=== PATIENT | female | born 1990 | race Caucasian/White ===

== ENCOUNTER → 2017-10-17 | Outpatient (CLI) | payer BC ==
[2017-10-17 13:39] LABS: Basophils % (A) 1 %; Eosinophils # (A) 0.1 k/uL (0-0.7); Eosinophils % (A) 2 %; HCT 42.8 % (34.0-46.0); HGB 13.9 gm/dL (11.4-16.0); Lymphocytes # (A) 1.7 k/uL (1.0-4.8); Lymphocytes % (A) 36 %; MCH 28.5 pg (25.0-35.0); MCHC 32.5 g/dL (31.0-37.0); MCV 87.7 fL (80.0-100.0); Mean Platelet Volume 6.9; Monocytes # (A) 0.2 k/uL (0-1.0); Monocytes % (A) 4 %; Neutrophils # (A) 2.6 k/uL (1.3-7.7); Neutrophils % (A) 54 %; Platelet Count 290 k/uL (150-450); RBC 4.88 m/uL (3.80-5.40); RDW 15.2 % (11.5-15.5); WBC 4.8 k/uL (3.8-10.6)
[2017-10-17 14:00] LABS: ALT 38 U/L (9-52); AST 23 U/L (14-36); Albumin 4.8 g/dL (3.5-5.0); Alkaline Phosphatase 74 U/L (38-126); Anion Gap 14 mmol/L; Blood Urea Nitrogen 14 mg/dL (7-17); Calcium 9.9 mg/dL (8.4-10.2); Carbon Dioxide 24 mmol/L (22-30); Chloride 101 mmol/L (98-107); Cholesterol 149 mg/dL (<200); Glucose 78 mg/dL (74-99); HDL Cholesterol 66 mg/dL (40-60); LDL Cholesterol,Calculated 65 mg/dL (0-99); Potassium 4.6 mmol/L (3.5-5.1); Sodium 139 mmol/L (137-145); Total Bilirubin 0.3 mg/dL (0.2-1.3); Total Protein 7.3 g/dL (6.3-8.2); Triglycerides 91 mg/dL (<150)
[2017-10-17 14:13] LABS: T4, Free (Free Thyroxine) 1.06 ng/dL (0.78-2.19)
[2017-10-17 14:42] LABS: C Reactive Protein <5.0 mg/L (<10.0)
[2017-10-17 17:36] LABS: Erythrocyte Sedimentation Rate 2 mm/hr (0-20)
[2017-10-17 18:39] LABS: Rheumatoid Factor 7 IU/mL (0-15)
[2017-10-17 18:47] LABS: Vitamin D 25 Hydroxy 21.2 ng/mL (30.0-100.0)
== END | disposition home or self-care (01) ==
LOC: LABWHC1 12:30
PROVIDERS: ATTEND Family Medicine
DX: Z00.00 Encounter for general adult medical examination without abnormal findings (principal); F98.8 Other specified behavioral and emotional disorders with onset usually occurring in childhood and adolescence; R53.83 Other fatigue; Z79.899 Other long term (current) drug therapy
CPT/HCPCS: 36415; 80053; 80061; 82306; 84439; 84443; 85025; 85652; 86038; 86140; 86431

== ENCOUNTER → 2019-12-27 | Outpatient (CLI) | payer OTHER ==
--- NOTE | 2019-12-27 16:46 | US ---
EXAMINATION TYPE: US abdomen complete DATE OF EXAM: 12/27/2019 COMPARISON: NONE CLINICAL HISTORY: R11.0 Nausea. episodes of spontaneous vomiting, on and off for years EXAM MEASUREMENTS: Liver Length: 13.9 cm Gallbladder Wall: 0.2 cm CBD: 0.4 cm Spleen: 11.2 cm Right Kidney: 9.5 x 4.0 x 4.8 cm Left Kidney: 10.0 x 3.7 x 4.9 cm Pancreas: wnl Liver: wnl Gallbladder: 1.2cm stone versus mobile sludge ball with comet tail artifact seen on anterior wall wh ich may be related too adenomyomatosis Evidence for sonographic Castillo's sign: no CBD: wnl Spleen: wnl Right Kidney: wnl Left Kidney: wnl Upper IVC: wnl Abd Aorta: wnl IMPRESSION: 1. Cholelithiasis. 2. There may be an additional long gallbladder polyp or adenomyosis the gallbladder.
--- NOTE | 2019-12-27 16:47 | US ---
EXAMINATION TYPE: US thyroid st tissue head/neck DATE OF EXAM: 12/27/2019 COMPARISON: NONE CLINICAL HISTORY: Thyromegaly E01.0. patient feels her thyroid is enlarged, no previous us, not on me ds GLAND SIZE: Right Lobe: 3.9 x 1.8 x 1.1cm Overall Parenchyma: homogenous Left Lobe: 4.2 x 1.3 x 1.2cm Overall Parenchyma: homogeneous Isthmus Thickness: 0.3 cm NODULES RIGHT: # of nodules measured on right: 0 LEFT: # of nodules measured on left: 0 ISTHMUS: # of nodules measured in the isthmus: 0 Bilateral neck scanned, no evidence of lymphadenopathy. IMPRESSION: 1. Normal thyroid ultrasound
== END | disposition home or self-care (01) ==
LOC: RADUSWWP 10:44
PROVIDERS: ATTEND Pediatrics
DX: E01.0 Iodine-deficiency related diffuse (endemic) goiter (principal); R11.0 Nausea; K80.20 Calculus of gallbladder without cholecystitis without obstruction
CPT/HCPCS: 76536; 76700

== ENCOUNTER → 2020-01-06 | Outpatient (CLI) | payer OTHER ==
--- NOTE | 2020-01-06 11:20 | NM ---
Nuclear medicine hepatobiliary scan. HISTORY: Pain. DOSAGE: The patient received 8 ounces of ensure plus and 4.0 mCi of Technetium 99m Choletec. FINDINGS: There is normal hepatic extraction. The gallbladder is seen by 20 minutes. There is bilia ry to bowel clearance is not seen at 60 minutes and delayed. This is a nonspecific finding be seen as a normal finding in one quarter lobulation. Ejection fraction is 50%. IMPRESSION: 1. No evidence of cholecystitis. Ejection fraction is within normal limits at 50%.
== END | disposition home or self-care (01) ==
LOC: RADNMMAIN 08:43
PROVIDERS: ATTEND Pediatrics
DX: R11.0 Nausea (principal)
CPT/HCPCS: 78226; A9537

== ENCOUNTER 2021-10-10 17:48 | Outpatient (CLI) | payer OTHER ==
[2021-10-10 20:09] VITALS: BP 123/73; PULSE 116; RESP 18; TEMP 98
--- NOTE | 2021-10-11 06:50 | P.MSEPDOC ---
Presenting Problems - Arrival Data Date of Arrival on Unit: 10/10/21 Time of Arrival on Unit: 17:48 Mode of Transport: Wheelchair - Complaint OB-Reason for Admission/Chief Complaint: Possible Onset of Labor Comment: pt states contractions have been going on the last 4 days but stronger this morning, pt states about every 5 minutes. Medical History - Information : 1 Para: 0 Term: 0 : 0 Abortions: Spontaneous or Elective: 0 Number of Living Children: 0 - Gestational Age Gestational Age by DONN (wks/days): 40 Weeks and 6 Days Review of Systems - Review of Systems Constitutional: No problems Breast: No problems ENT: No problems Cardiovascular: No problems Respiratory: No problems Gastrointestinal: No problems Genitourinary: No problems Musculoskeletal: No problems Neurological: No problems Skin: No problems Vital Signs - Temperature Temperature: 98.0 F Temperature Source: Oral - Pulse Right Pulse Oximetery Pulse Rate: 116 Pulse Assessment Method: Pulse Oximetry - Respirations Respiratory Rate: 18 Oxygen Delivery Method: Room Air O2 Sat by Pulse Oximetry: 98 - Blood Pressure Right Arm Blood Pressure: 123/73 Blood Pressure Mean: 89 Blood Pressure Source: Automatic Cuff Medical Screen Scoring - Cervical Exam Dilation (cm): 1 Effacement (%): 0 Station: -2 Membranes: Intact - Uterine Contractions Frequency From (mins): 2 Frequency To (mins): 4 Duration From (seconds): 40 Duration To (seconds): 60 Intensity: Mild Resting: Soft to palpation - Assessment - Baby A Baseline FHR: 125 Heart Rate - NICHD Category: Category I (Normal) NST: Reactive Physician Notification - Physician Notified Physician Notified Date: 10/10/21 Physician Notified Time: 18:00 Physician: Toan Godinez New Order Received: Yes - Notification Comment Comment: in unit, to bedside to see patient order to discharge patient after reactive NST Maternal Triage Index - Maternal Triage Index Presenting for scheduled procedure w/no complaint: No - Stat/Priority 1 Stat Priority 1: No - Urgent/Priority 2 Urgent Priority 2: No - Prompt/Priority 3 Prompt Priority 3: No - Non-Urgent/Priority 4 Non-Urgent Priority 4: Yes Criteria Met for Priority 4: early labor signs. Disposition - Disposition OB Disposition: Discharge to home Discharge Date: 10/10/21 Discharge Time: 18:30 I agree with the RN Medical Screening Exam: Yes Case reviewed; plan agreed upon as documented in EMR&OBIX.: Yes Diagnosis: FALSE LABOR AT OR AFTER 37 COMPLETED WEEKS OF GESTATION (Patient pre sents with complaints of contractions and a gush of fluid earlier this morning. Amnio sure is negative. Patient is only 1 cm dilated not having regular contractions. heart tones are reactive. Patient's discharge home follow up in the morning for induction as scheduled)
== END 2021-10-10 18:30 | disposition home or self-care (01) ==
LOC: FBPOP 17:48
PROVIDERS: ATTEND Obstetrics & Gynecology
DX: O47.1 False labor at or after 37 completed weeks of gestation (principal); Z3A.40 40 weeks gestation of pregnancy
CPT/HCPCS: 59025; 84112; 99213

== ENCOUNTER 2021-10-11 03:45 | Inpatient (IN) | payer OTHER ==
[2021-10-11] MEDS ORDERED: TERBUTALINE 1 MG/ML VIAL SQ PRN (03:52)
[2021-10-11] MEDS ORDERED: LIDOCAINE 0.5% (PF) 5 MG/ML (50 ML SDV) SQ PRN (03:52)
[2021-10-11] MEDS ORDERED: CARBOPROST TROMETHAMINE 250 MCG/ML 1 ML AMP IM PRN (03:52)
[2021-10-11] MEDS ORDERED: METHYLERGONOVINE 0.2 MG/ML 1 ML AMP IM PRN (03:52)
[2021-10-11] MEDS ORDERED: OXYTOCIN 10 UNIT/ML 1 ML VIAL IM PRN (03:52)
[2021-10-11] MEDS ORDERED: OXYTOCIN 30 UNITS/500 ML NS 30 UNIT in SALINE 1 500ML.BAG IV SCH (04:00)
[2021-10-11 04:35] LABS: Basophils % (A) 0 %; Eosinophils # (A) 0.1 k/uL (0-0.7); Eosinophils % (A) 1 %; HCT 41.6 % (34.0-46.0); HGB 13.8 gm/dL (11.4-16.0); Lymphocytes # (A) 1.8 k/uL (1.0-4.8); Lymphocytes % (A) 13 %; MCH 30.6 pg (25.0-35.0); MCHC 33.2 g/dL (31.0-37.0); MCV 92.1 fL (80.0-100.0); Mean Platelet Volume 8.9; Monocytes # (A) 0.5 k/uL (0-1.0); Monocytes % (A) 4 %; Neutrophils # (A) 11.2 k/uL (1.3-7.7); Neutrophils % (A) 81 %; Platelet Count 254 k/uL (150-450); RBC 4.52 m/uL (3.80-5.40); RDW 14.2 % (11.5-15.5); WBC 13.8 k/uL (3.8-10.6)
[2021-10-11] MEDS: LACTATED RINGERS 1,000 ML IV SCH ×2 (04:37→18:36)
[2021-10-11 05:55] LABS: Amphetamine Screen,Urine Not Detected (NotDetected); Barbiturate Screen,Urine Not Detected (NotDetected); Benzodiazepines Screen,Urine Not Detected (NotDetected); Cocaine Screen,Urine Not Detected (NotDetected); Methadone Screen, Urine Not Detected (NotDetected); Opiate Screen,Urine Not Detected (NotDetected); Oxycodone Screen, Urine Not Detected (NotDetected); Phencyclidine Screen,Urine Not Detected (NotDetected); Tricyclic Antidepressant,Urine Not Detected (NotDetected); Urn Cannabinoid Scrn Not Detected (NotDetected)
[2021-10-11] MEDS ORDERED: BUTORPHANOL 1 MG/ML 1 ML VIAL IV PRN (07:30)
--- NOTE | 2021-10-11 07:49 | P.HPOB ---
History of Present Illness H&P Date: 10/11/21 Chief Complaint: SROM 31 year old presents at 41 weeks with SROM at 2 am. She is xochitl every few minutes. heart tones 140 with moderate variability and reactive. Review of Systems All systems: negative Constitutional: Denies chills, Denies fever Eyes: denies blurred vision, denies pain Ears, nose, mouth and throat: Denies headache, Denies sore throat Cardiovascular: Denies chest pain, Denies shortness of breath Respiratory: Denies cough Gastrointestinal: Denies abdominal pain, Denies diarrhea, Denies nausea, Denies vomiting Genitourinary: Denies dysuria, Denies hematuria Musculoskeletal: Denies myalgias Integumentary: Denies pruritus, Denies rash Neurological: Denies numbness, Denies weakness Psychiatric: Denies anxiety, Denies depression Endocrine: Denies fatigue, Denies weight change Past Medical History Past Medical History: No Reported History Additional Past Medical History / Comment(s): Anxiety/Depression, Gastritis, pseudotumor cerebri History of Any Multi-Drug Resistant Organisms: None Reported Past Surgical History: Orthopedic Surgery, Tonsillectomy Additional Past Surgical History / Comment(s): Ortho Sx-Bunion removal to left foot Past Anesthesia/Blood Transfusion Reactions: No Reported Reaction Past Psychological History: No Psychological Hx Reported Smoking Status: Current every day smoker Past Alcohol Use History: None Reported Past Drug Use History: None Reported Additional Drug Use History / Comment(s): See urine drug screen on 06/05/21- positive marijuana. 4-5 cig per day - Past Family History Mother Family Medical History: Hypertension Additional Family Medical History / Comment(s): microscopic cholitis, depresion/anxiety Medications and Allergies Home Medications Medication Instructions Recorded Confirmed Type Ami-Wpwf-Ceemv Acid 1 cap PO DAILY 06/04/21 10/11/21 History [-U Capsule (formulary)] Allergies Allergy/AdvReac Type Severity Reaction Status Date / Time No Known Allergies Allergy Verified 10/11/21 03:52 Exam Osteopathic Statement: *. No significant issues noted on an osteopathic structural exam other than those noted in the History and Physical/Consult. Vital Signs Temp Pulse Resp BP Pulse Ox 10/11/21 03:50 95.4 F L 104 H 18 133/87 100 Intake and Output 0610/11/21 10/11/21 22:59 06:59 14:59 Other: # Voids 1 Weight 98.43 kg Heart: Regular rate and rhythm Lungs: Clear to auscultation bilaterally Abdomen: Soft, nontender Extremities: Negative Homans sign Results Result Diagrams: 10/11/21 04:05 Abnormal Lab Results - Last 24 Hours (Table) 10/11/21 Range/Units 04:05 WBC 13.8 H (3.8-10.6) k/uL Neutrophils # 11.2 H (1.3-7.7) k/uL Assessment and Plan (1) Spontaneous rupture of amniotic membranes Current Visit: Yes Status: Acute Code(s): [id number] - SNOMED Code(s): 805985248 (2) Normal labor Current Visit: Yes Status: Acute Code(s): O80 - ENCOUNTER FOR FULL-TERM UNCOMPLICATED DELIVERY; Z37.9 - OUTCOME OF DELIVERY, UNSPECIFIED SNOMED Code(s): 60126084 Plan: 1. pitocin augmentation 2. anticipate normal vaginal delivery
[2021-10-11] MEDS ORDERED: ROPIVACAINE 100 MG, fentaNYL (PF). 200 MCG in SODIUM CHLORIDE 0.9% 76 ML EPIDURAL ONE (09:45)
[2021-10-11] MEDS ORDERED: BENZOCAINE/MENTHOL SPRAY 1 GM/SPRAY AEROSOL TOPICAL PRN (12:21)
[2021-10-11] MEDS ORDERED: HYDROCORTISONE 2.5% RECTAL CREAM 30 GM TUBE RECTAL PRN (12:21)
[2021-10-11] MEDS ORDERED: diphenhydrAMINE 50 MG/ML 1 ML VIAL IVP PRN ×2 (12:21)
[2021-10-11] MEDS ORDERED: ZOLPIDEM 5 MG TAB PO PRN (12:21)
[2021-10-11] MEDS ORDERED: LANOLIN CREAM 5 GM TUBE TOPICAL PRN (12:21)
[2021-10-11] MEDS ORDERED: SIMETHICONE 80 MG CHEWABLE PO PRN (12:21)
[2021-10-11] MEDS ORDERED: diphenhydrAMINE 50 MG CAP PO PRN (12:21)
[2021-10-11] MEDS ORDERED: diphenhydrAMINE 25 MG CAP PO PRN (12:21)
[2021-10-11] MEDS: IBUPROFEN 600 MG TAB PO PRN ×2 (12:32→18:34)
[2021-10-11] MEDS: SENNOSIDES-DOCUSATE SODIUM 1 EACH TAB PO SCH (20:35)
[2021-10-11] MEDS: ACETAMINOPHEN TAB 325 MG TAB PO PRN (20:35)
[2021-10-11 21:05] VITALS: RESP 16
[2021-10-12] MEDS: IBUPROFEN 600 MG TAB PO PRN ×3 (00:57→13:59)
[2021-10-12] MEDS: ACETAMINOPHEN TAB 325 MG TAB PO PRN ×2 (03:49→10:38)
[2021-10-12 06:15] LABS: Basophils % (A) 0 %; Eosinophils % (A) 0 %; HCT 40.6 % (34.0-46.0); HGB 13.3 gm/dL (11.4-16.0); Lymphocytes # (A) 1.6 k/uL (1.0-4.8); Lymphocytes % (A) 10 %; MCH 30.9 pg (25.0-35.0); MCHC 32.7 g/dL (31.0-37.0); MCV 94.4 fL (80.0-100.0); Mean Platelet Volume 8.8; Monocytes # (A) 0.6 k/uL (0-1.0); Monocytes % (A) 4 %; Neutrophils # (A) 12.8 k/uL (1.3-7.7); Neutrophils % (A) 84 %; Platelet Count 211 k/uL (150-450); RDW 14.3 % (11.5-15.5); WBC 15.2 k/uL (3.8-10.6)
--- NOTE | 2021-10-12 07:41 | P.DS ---
Providers Date of admission: 10/11/21 03:45 Expected date of discharge: 10/12/21 Attending physician: Lillian Newell Primary care physician: Stated None - Discharge Diagnosis(es) (1) Spontaneous rupture of amniotic membranes Current Visit: Yes Status: Resolved (2) Normal labor Current Visit: Yes Status: Resolved Hospital Course: Patient presented with spontaneous rupture membranes. She underwent a normal vaginal delivery with Pitocin augmentation. course was uncomplicat ed. She denies nausea, vomiting, chest pain, shortness of breath or any calf pain. Patient will be discharged home day #1 in stable condition to follow-up with me in 6 weeks. Plan - Discharge Summary Discharge Rx Participant: No New Discharge Prescriptions: New Ibuprofen [Motrin] 600 mg PO Q6HR PRN #30 tab PRN Reason: Mild Pain (Scale 1 To 3) No Action Wge-Mowf-Bacxm Acid [-U Capsule (formulary)] 1 cap PO DAILY Discharge Medication List Kvi-Lwue-Uxfwt Acid [-U Capsule (formulary)] 1 cap PO DAILY 06/04/21 [History] Ibuprofen [Motrin] 600 mg PO Q6HR PRN #30 tab 10/12/21 [Rx] Follow up Appointment(s)/Referral(s): Lillian Newell DO [Doctor of Osteopathic Medicine] - 11/19/21 3:45 pm Discharge Disposition: HOME SELF-CARE
--- NOTE | 2021-10-12 07:47 | P.PROBDLV ---
Vaginal Delivery Note - . Vaginal Delivery Note: 31 year old presents at 41 weeks with SROM at 2 am. She is xochitl every few minutes. heart tones 140 with moderate variability and reactive. Pitocin augmentation was started at 6 AM and she was an uncomfortable. After anesthesia reviewed her records have pseudotumor cerebri she did get an epidural which was very effective. Her cervix was completely dilated at 11:09 AM. She pushed and delivered a viable female over intact perineum under epidural anesthesia at 11:53 AM. Head delivered OA, nuchal cord 1 easily reduced, anterior shoulder delivered with gentle downward guidance for by posterior shoulder and rest of body. Nose and mouth bulb suctioned, cord clamped and cut, placed mother's abdomen. Apgars 8, 9, weight 7 lbs. 4 oz. Placenta delivered spontaneously, intact with three-vessel cord at 11:55 AM. Vagina, cervix, and perineum were inspected. First-degree midline laceration was repaired with 3-0 Vicryl. Estimated blood loss 150 mL. Mother and baby in stable condition.
[2021-10-12] MEDS: SENNOSIDES-DOCUSATE SODIUM 1 EACH TAB PO SCH (08:18)
[2021-10-12 08:51] VITALS: BP 113/75; PULSE 91; TEMP 97.6
== END 2021-10-12 14:20 | disposition home or self-care (01) | DRG 807 ==
LOC: 4FBP 03:45
PROVIDERS: ADMIT Obstetrics & Gynecology; ATTEND Obstetrics & Gynecology
PROC: 10E0XZZ Delivery of Products of Conception, External Approach (ICD-10-PCS; principal; 2021-10-11)
PROC: 0HQ9XZZ Repair Perineum Skin, External Approach (ICD-10-PCS; principal; 2021-10-11)
PROC: 00HU33Z Insertion of Infusion Device into Spinal Canal, Percutaneous Approach (ICD-10-PCS; principal; 2021-10-11)
PROC: 3E0R3NZ Introduction of Analgesics, Hypnotics, Sedatives into Spinal Canal, Percutaneous Approach (ICD-10-PCS; principal; 2021-10-11)
DX: O69.81X0 Labor and delivery complicated by cord around neck, without compression, not applicable or unspecified (principal); O70.0 First degree perineal laceration during delivery; O99.334 Smoking (tobacco) complicating childbirth; F17.210 Nicotine dependence, cigarettes, uncomplicated; Z28.310 Unvaccinated for COVID-19; Z3A.41 41 weeks gestation of pregnancy; Z37.0 Single live birth; Z86.59 Personal history of other mental and behavioral disorders; Z87.19 Personal history of other diseases of the digestive system; Z86.69 Personal history of other diseases of the nervous system and sense organs; Z98.890 Other specified postprocedural states; Z90.89 Acquired absence of other organs; Z82.49 Family history of ischemic heart disease and other diseases of the circulatory system; Z81.8 Family history of other mental and behavioral disorders; Z83.79 Family history of other diseases of the digestive system
CPT/HCPCS: 80306; 85025; 86850; 86900; 86901

== ENCOUNTER → 2022-08-06 | Outpatient (CLI) | payer BC ==
--- NOTE | 2022-08-06 11:08 | US ---
EXAMINATION TYPE: US thyroid st tissue head/neck DATE OF EXAM: 08/06/2022 COMPARISON: None CLINICAL HISTORY: R59.1 GENERALIZED ENLARGED LYMPH NODES. Patient states feeling enlarged lymph nodes x 6 months and having an enlarged thyroid GLAND SIZE: Right Lobe: 4.2 x 1.5 x 1.3 cm Overall Parenchyma: homogenous Left Lobe: 4.4 x 1.8 x 1.2 cm Overall Parenchyma: homogeneous Isthmus Thickness: 0.3 cm NODULES RIGHT: # of nodules measured on right: 0 LEFT: # of nodules measured on left: 0 ISTHMUS: # of nodules measured in the isthmus: 0 Bilateral neck scanned. Prominent right lymph node visualized within normal limits with short axis m easurement = 0.7 cm. IMPRESSION: 1. No thyroid nodules. 2. Normal appearing lymph node within the right neck. If there is concern for lymphadenopathy consid er further evaluation with CT neck with IV contrast.
== END | disposition home or self-care (01) ==
LOC: RADUSWWP 09:24
PROVIDERS: ATTEND Pediatrics
DX: R59.1 Generalized enlarged lymph nodes (principal)
CPT/HCPCS: 76536

== ENCOUNTER → 2022-10-25 | Outpatient (CLI) | payer BC ==
--- NOTE | 2022-10-27 19:18 | XR ---
EXAMINATION TYPE: XR cervical spine comp DATE OF EXAM: 10/25/2022 COMPARISON: 03/15/2014 HISTORY: Lower back and neck pain TECHNIQUE: 5 view cervical spine FINDINGS: Mild foraminal narrowing is present at C6-7 bilaterally. Vertebral body heights are preserv ed. There is a slight kyphosis centered at the C5 level. Posterior spinal lamellar line is intact. Pr evertebral space is normal. The odontoid is partially obscured by occiput. IMPRESSION: 1. Mild foraminal narrowing C6-7 bilaterally. 2. No acute osseous abnormality
--- NOTE | 2022-10-27 19:19 | XR ---
EXAMINATION TYPE: XR thoracic spine complete DATE OF EXAM: 10/25/2022 COMPARISON: None HISTORY: Pain TECHNIQUE: Three-view thoracic spine FINDINGS: There are 12 thoracic type vertebral bodies. Pedicles are intact. Disc heights are preserve d. Vertebral body heights are preserved. Alignment is preserved. IMPRESSION: 1. Unremarkable three-view thoracic spine
--- NOTE | 2022-10-27 19:20 | XR ---
EXAMINATION TYPE: XR lumbosacral spine min 4V DATE OF EXAM: 10/25/2022 COMPARISON: None HISTORY: Pain TECHNIQUE: 5 view lumbar spine FINDINGS: There are 5 lumbar-type vertebral bodies. Pedicles are intact. Disc heights are preserved. Vertebral body heights are preserved. Alignment is preserved. There is some mild facet degenerative change L4-5 and L5-S1 bilaterally. No spondylolytic defects are evident. IMPRESSION: 1. Mild facet changes lower lumbar spine. 2. No acute osseous abnormality.
== END | disposition home or self-care (01) ==
LOC: RADXRMAIN 12:42
PROVIDERS: ATTEND Pediatrics
DX: M54.2 Cervicalgia (principal); M99.71 Connective tissue and disc stenosis of intervertebral foramina of cervical region; M54.6 Pain in thoracic spine; M54.50 Low back pain, unspecified
CPT/HCPCS: 72050; 72072; 72110

== ENCOUNTER → 2023-06-27 | Outpatient (CLI) | payer BC ==
--- NOTE | 2023-06-27 17:37 | US ---
EXAMINATION TYPE: US thyroid st tissue head/neck DATE OF EXAM: 06/27/2023 COMPARISON: NONE CLINICAL INDICATION: Female, 33 years old with history of R229 SOFT TISSUE SWELLING; normal thyroid l abs, palpable area within hair bed on left side for 6 months, not growing GLAND SIZE: Right Lobe: 4.3 x 1.4 x 1.6 cm Overall Parenchyma: homogeneous Left Lobe: 4.4 x 1.6 x 1.4 cm Overall Parenchyma: homogeneous Isthmus Thickness: 0.3 cm NODULES RIGHT: # of nodules measured on right: 0 LEFT: # of nodules measured on left: 0 ISTHMUS: # of nodules measured in the isthmus: 0 Bilateral neck scanned, no evidence of lymphadenopathy. Scanned left side of occipital region where patient has palpable, 0.7 x 0.5 x 0.4cm possible lymph n ode versus lipoma versus other etiology seen. Very difficult to image due to full head of hair IMPRESSION: 1. Unremarkable thyroid ultrasound. 2. Left occipital subcutaneous collection is nonspecific this is difficult to classify through the th ick hair present consider sebaceous cyst within the differential. Small lymph nodes not excluded. 2017 ACR TI-RADS LEVEL: *Highest TI-RADS level nodule reported
== END | disposition home or self-care (01) ==
LOC: RADUSWWP 10:31
PROVIDERS: ATTEND Pediatrics
DX: R22.9 Localized swelling, mass and lump, unspecified (principal)
CPT/HCPCS: 76536

== ENCOUNTER 2023-07-09 15:22 | Emergency (ER) | payer BC ==
[2023-07-09] MEDS: MECLIZINE 12.5 MG TAB PO STA (16:38)
[2023-07-09] MEDS: SODIUM CHLORIDE 0.9% 1,000 ML IV STA (16:43)
[2023-07-09 17:04] LABS: Basophils # (A) 0.1 k/uL (0-0.2); Basophils % (A) 1 %; Eosinophils # (A) 0.2 k/uL (0-0.7); Eosinophils % (A) 3 %; HCT 39.5 % (34.0-46.0); HGB 13.5 gm/dL (11.4-16.0); Lymphocytes # (A) 2.3 k/uL (1.0-4.8); Lymphocytes % (A) 36 %; MCH 30.9 pg (25.0-35.0); MCHC 34.1 g/dL (31.0-37.0); MCV 90.7 fL (80.0-100.0); Mean Platelet Volume 8.5; Monocytes # (A) 0.2 k/uL (0-1.0); Monocytes % (A) 3 %; Neutrophils # (A) 3.6 k/uL (1.3-7.7); Neutrophils % (A) 56 %; Platelet Count 229 k/uL (150-450); RBC 4.35 m/uL (3.80-5.40); RDW 12.7 % (11.5-15.5); WBC 6.5 k/uL (3.8-10.6)
[2023-07-09 17:12] LABS: Appearance,Urine Cloudy (Clear); Bilirubin,Urine Negative (Negative); Blood,Urine Negative (Negative); Color,Urine Colorless; Glucose,Urine (UA) Negative (Negative); Ketones,Urine Negative (Negative); Leukocyte Esterase,Urine Trace (Negative); Mucus,Urine Rare /hpf; Nitrite,Urine Negative (Negative); PH, Urine 6.5 (5.0-8.0); Protein,Urine Negative (Negative); RBC,Urine 2 /hpf (0-5); Specific Gravity,Urine 1.008 (1.001-1.035); Squamous Epithelial Cell,Urine 17 /hpf (0-4); Urobilinogen,Urine <2.0 mg/dL (<2.0); WBC,Urine 1 /hpf (0-5)
[2023-07-09 17:23] LABS: ALT 65 U/L (4-34); AST 30 U/L (14-36); African American GFR (CKD) >90 (>60 ml/min/1.73 sqM); Albumin 4.3 g/dL (3.5-5.0); Alkaline Phosphatase 71 U/L (38-126); Anion Gap 6 mmol/L; Blood Urea Nitrogen 15 mg/dL (7-17); Calcium 9.6 mg/dL (8.4-10.2); Carbon Dioxide 26 mmol/L (22-30); Chloride 105 mmol/L (98-107); Glucose 93 mg/dL (74-99); Non-African American GFR(CKD) >90 (>60 ml/min/1.73 sqM); Potassium 4.1 mmol/L (3.5-5.1); Sodium 137 mmol/L (137-145); Total Bilirubin 0.2 mg/dL (0.2-1.3); Total Protein 6.7 g/dL (6.3-8.2)
--- NOTE | 2023-07-09 18:07 | ED ---
General Adult HPI - General Chief complaint: Dizziness Stated complaint: dizziness Time Seen by Provider: 07/09/23 15:33 Source: patient, RN notes reviewed Mode of arrival: ambulatory Limitations: no limitations - History of Present Illness Initial comments: 33-year-old female presents to the emergency department for evaluation of dizziness. Patient reports that symptoms have been going on for around 3 days. She reports it as a spinning sensation. She does report that she is experienced similar symptoms in the past. She admits to headache which is typical for her. She denies any changes in the qualities of her headache. She denies fever, chi lls, recent illness. Denies vision changes. Denies hearing changes, ringing in the ears. - Related Data Home Medications Medication Instructions Recorded Confirmed Fca-Bguj-Qyeda Acid 1 cap PO DAILY 06/04/21 10/11/21 [-U Capsule (formulary)] Previous Rx's Medication Instructions Recorded Ibuprofen [Motrin] 600 mg PO Q6HR PRN #30 tab 10/12/21 Meclizine [Antivert] 25 mg PO TID #12 tab 07/09/23 Allergies Allergy/AdvReac Type Severity Reaction Status Date / Time No Known Allergies Allergy Verified 10/11/21 03:52 Review of Systems ROS Statement: Those systems with pertinent positive or pertinent negative responses have been documented in the HPI. ROS Other: All systems not noted in ROS Statement are negative. Past Medical History Past Medical History: No Reported History Additional Past Medical History / Comment(s): Anxiety/Depression, Gastritis, pseudotumor cerebri History of Any Multi-Drug Resistant Organisms: None Reported Past Surgical History: Orthopedic Surgery, Tonsillectomy Additional Past Surgical History / Comment(s): Ortho Sx-Bunion removal to left foot Past Anesthesia/Blood Transfusion Reactions: No Reported Reaction Past Psychological History: No Psychological Hx Reported, Anxiety, Depression Smoking Status: Current every day smoker Past Alcohol Use History: None Reported Past Drug Use History: None Reported - Past Family History Mother Family Medical History: Hypertension Additional Family Medical History / Comment(s): microscopic cholitis, depresion/anxiety General Exam Limitations: no limitations General appearance: alert, in no apparent distress Head exam: Present: atraumatic, normocephalic, normal inspection Eye exam: Present: normal appearance, PERRL, EOMI. Absent: scleral icterus, conjunctival injection, periorbital swelling ENT exam: Present: normal exam, mucous membranes moist, TM's normal bilaterally, normal external ear exam Neck exam: Present: normal inspection, full ROM. Absent: tenderness, meningismus, lymphadenopathy Respiratory exam: Present: normal lung sounds bilaterally. Absent: respiratory distress, wheezes, rales, rhonchi, stridor Cardiovascular Exam: Present: regular rate, normal rhythm, normal heart sounds. Absent: systolic murmur, diastolic murmur, rubs, gallop, clicks GI/Abdominal exam: Present: soft, normal bowel sounds. Absent: distended, tenderness, guarding, rebound, rigid Extremities exam: Present: normal inspection, full ROM, normal capillary refill. Absent: tenderness, pedal edema, joint swelling, calf tenderness Back exam: Present: normal inspection Neurological exam: Present: alert, oriented X3, CN II-XII intact, normal gait Psychiatric exam: Present: normal affect, normal mood Skin exam: Present: warm, dry, intact, normal color. Absent: rash Course Vital Signs 07/09/23 07/09/23 07/09/23 15:24 17:55 19:18 Temperature 98.0 F 98 F 97.9 F Pulse Rate 98 81 82 Respiratory 16 18 18 Rate Blood Pressure 156/95 131/85 135/82 O2 Sat by Pulse 98 99 99 Oximetry Medical Decision Making - Medical Decision Making Was pt. sent in by a medical professional or institution (SYLVAIN Garcia, TRASH COLLECTOR SUPERVISOR, urgent care, hospital, or custodial...) When possible be specific @ -No Did you speak to anyone other than the patient for history (EMS, parent, family, police, friend...)? What history was obtained from this source @ -No Did you review nursing and triage notes (agree or disagree)? Why? @ -I reviewed and agree with nursing and triage notes Were old charts reviewed (outside hosp., previous admission, EMS record, old EKG, old radiological studies, urgent care reports/EKG's, custodial records)? Report findings @ -No old charts were reviewed Differential Diagnosis (chest pain, altered mental status, abdominal pain women, abdominal pain men, vaginal bleeding, weakness, fever, dyspnea, syncope, headache, dizziness, GI bleed, back pain, seizure, CVA, palpatations, mental h ealth, musculoskeletal)? @ -Differential Dizziness: Benign paroxysmal positional Vertigo, Menieres disease, otitis media, acoustic neuroma, vertebrobasilar insufficiency, cerebellar stroke, encephalitis, hypovolemic, arrhythmia, coronary artery syndrome, anemia, this is not meant to be an all-inclusive list EKG interpreted by me (3pts min.). @ -EKG at 1626 shows sinus rhythm rate 80, VA 148, QRS 97, QTQTc [id number] X-rays interpreted by me (1pt min.). @ -None done CT interpreted by me (1pt min.). @ -CT brain shows no acute process, cerebellar tonsillar ectopia U/S interpreted by me (1pt. min.). @ -None done What testing was considered but not performed or refused? (CT, X-rays, U/S, lab s)? Why? @ -None What meds were considered but not given or refused? Why? @ -None Did you discuss the management of the patient with other professionals (professionals i.e. , PA, TRASH COLLECTOR SUPERVISOR, lab, RT, psych nurse, social work msw, pump machine operator, teacher, chief school finance officer, sample case porter)? Give summary @ -No Was smoking cessation discussed for >3mins.? @ -No Was critical care preformed (if so, how long)? @ -No Were there social determinants of health that impacted care today? How? (Homelessness, low income, unemployed, alcoholism, drug addiction, transportation, low edu. Level, literacy, decrease access to med. care, shelter, rehab)? @ -No Was there de-escalation of care discussed even if they declined (Discuss DNR or withdrawal of care, Hospice)? DNR status @ -No What co-morbidities impacted this encounter? (DM, HTN, Smoking, COPD, CAD, Cancer, CVA, ARF, Chemo, Hep., AIDS, mental health diagnosis, sleep apnea, morbid obesity)? @ -None Was patient admitted / discharged? Hospital course, mention meds given and route, prescriptions, significant lab abnormalities, going to OR and other pertinent info. @ -Discharge. Patient presented to the emergency department for evaluation of dizziness. Laboratory studies obtained.CBC unremarkable, CMP unremarkable; UA shows trace leukocyte esterase contamination with 17 squamous epithelial cells, negative urine hCG; CT brain shows no acute process, cerebellar tonsillar ectopia which the patient is aware of patient received 1 L normal saline in the emergency department along with meclizine. She states that this improved her symptoms slightly. Discussed admission versus discharge. Patient would like to be discharged at this time which I feel is reasonable. Patient will be provided prescription for meclizine at home. Patient understanding agreeable plan. Patient stable at time of discharge. Case discussed with Dr. Maravilla. Undiagnosed new problem with uncertain prognosis? @ -No Drug Therapy requiring intensive monitoring for toxicity (Heparin, Nitro, Insulin, Cardizem)? @ -No Were any procedures done? @ -No Diagnosis/symptom? @ -Vertigo Acute, or Chronic, or Acute on Chronic? @ -Acute Uncomplicated (without systemic symptoms) or Complicated (systemic symptoms)? @ -Uncomplicated Side effects of treatment? @ -No Exacerbation, Progression, or Severe Exacerbation? @ -No Poses a threat to life or bodily function? How? (Chest pain, [place], [place], pneumonia, PE, COPD, DKA, ARF, appy, cholecystitis, CVA, Diverticulitis, Homicidal, Suic idal, threat to staff... and all critical care pts) @ -No - Lab Data Result diagrams: 07/09/23 16:31 07/09/23 16:31 Lab Results 07/09/23 07/09/23 07/09/23 Range/Units 16:31 16:31 16:31 WBC 6.5 (3.8-10.6) k/uL RBC 4.35 (3.80-5.40) m/uL Hgb 13.5 (11.4-16.0) gm/dL Hct 39.5 (34.0-46.0) % MCV 90.7 (80.0-100.0) fL MCH 30.9 (25.0-35.0) pg MCHC 34.1 (31.0-37.0) g/dL RDW 12.7 (11.5-15.5) % Plt Count 229 (150-450) k/uL MPV 8.5 Neutrophils % 56 % Lymphocytes % 36 % Monocytes % 3 % Eosinophils % 3 % Basophils % 1 % Neutrophils # 3.6 (1.3-7.7) k/uL Lymphocytes # 2.3 (1.0-4.8) k/uL Monocytes # 0.2 (0-1.0) k/uL Eosinophils # 0.2 (0-0.7) k/uL Basophils # 0.1 (0-0.2) k/uL Sodium 137 (137-145) mmol/L Potassium 4.1 (3.5-5.1) mmol/L Chloride 105 (98-107) mmol/L Carbon Dioxide 26 (22-30) mmol/L Anion Gap 6 mmol/L BUN 15 (7-17) mg/dL Creatinine 0.70 (0.52-1.04) mg/dL Est GFR (CKD-EPI)AfAm >90 (>60 ml/min/1.73 sqM) Est GFR (CKD-EPI)NonAf >90 (>60 ml/min/1.73 sqM) Glucose 93 (74-99) mg/dL Calcium 9.6 (8.4-10.2) mg/dL Total Bilirubin 0.2 (0.2-1.3) mg/dL AST 30 (14-36) U/L ALT 65 H (4-34) U/L Alkaline Phosphatase 71 (38-126) U/L Total Protein 6.7 (6.3-8.2) g/dL Albumin 4.3 (3.5-5.0) g/dL Urine Color Colorless Urine Appearance Cloudy H (Clear) Urine pH 6.5 (5.0-8.0) Ur Specific Spivey 1.008 (1.001-1.035) Urine Protein Negative (Negative) Urine Glucose (UA) Negative (Negative) Urine Ketones Negative (Negative) Urine Blood Negative (Negative) Urine Nitrite Negative (Negative) Urine Bilirubin Negative (Negative) Urine Urobilinogen <2.0 (<2.0) mg/dL Ur Leukocyte Esterase Trace H (Negative) Urine RBC 2 (0-5) /hpf Urine WBC 1 (0-5) /hpf Ur Squamous Epith Cells 17 H (0-4) /hpf Urine Mucus Rare H (None) /hpf Urine HCG, Qual (Not Detectd) 07/09/23 Range/Units 16:31 WBC (3.8-10.6) k/uL RBC (3.80-5.40) m/uL Hgb (11.4-16.0) gm/dL Hct (34.0-46.0) % MCV (80.0-100.0) fL MCH (25.0-35.0) pg MCHC (31.0-37.0) g/dL RDW (11.5-15.5) % Plt Count (150-450) k/uL MPV Neutrophils % % Lymphocytes % % Monocytes % % Eosinophils % % Basophils % % Neutrophils # (1.3-7.7) k/uL Lymphocytes # (1.0-4.8) k/uL Monocytes # (0-1.0) k/uL Eosinophils # (0-0.7) k/uL Basophils # (0-0.2) k/uL Sodium (137-145) mmol/L Potassium (3.5-5.1) mmol/L Chloride (98-107) mmol/L Carbon Dioxide (22-30) mmol/L Anion Gap mmol/L BUN (7-17) mg/dL Creatinine (0.52-1.04) mg/dL Est GFR (CKD-EPI)AfAm (>60 ml/min/1.73 sqM) Est GFR (CKD-EPI)NonAf (>60 ml/min/1.73 sqM) Glucose (74-99) mg/dL Calcium (8.4-10.2) mg/dL Total Bilirubin (0.2-1.3) mg/dL AST (14-36) U/L ALT (4-34) U/L Alkaline Phosphatase (38-126) U/L Total Protein (6.3-8.2) g/dL Albumin (3.5-5.0) g/dL Urine Color Urine Appearance (Clear) Urine pH (5.0-8.0) Ur Specific Spivey (1.001-1.035) Urine Protein (Negative) Urine Glucose (UA) (Negative) Urine Ketones (Negative) Urine Blood (Negative) Urine Nitrite (Negative) Urine Bilirubin (Negative) Urine Urobilinogen (<2.0) mg/dL Ur Leukocyte Esterase (Negative) Urine RBC (0-5) /hpf Urine WBC (0-5) /hpf Ur Squamous Epith Cells (0-4) /hpf Urine Mucus (None) /hpf Urine HCG, Qual Not Detected (Not Detectd) Disposition Clinical Impression: Dizziness, Vertigo Disposition: HOME SELF-CARE Condition: Stable Instructions (If sedation given, give patient instructions): Dizziness (ED) Additional Instructions: Please follow up with neurology. Return to the emergency department for new or worsening symptoms. Prescriptions: Meclizine [Antivert] 25 mg PO TID #12 tab Is patient prescribed a controlled substance at d/c from ED?: No Referrals: Tim Bear MD [Primary Care Provider] - 1-2 days
--- NOTE | 2023-07-09 18:25 | CT ---
EXAMINATION TYPE: CT brain wo con CT DLP: 1132.8 mGycm, Automated exposure control for dose reduction was used. DATE OF EXAM: 07/09/2023 5:45 PM COMPARISON: None. CLINICAL INDICATION:Female, 33 years old with history of dizziness, 2021, headache/dizzy TECHNIQUE: Brain: Axial CT images of the brain were obtained with coronal and sagittal reformats created and rev iewed. Contrast used: None. Oral contrast used: None. FINDINGS: Brain: Extra-axial spaces: No abnormal extra-axial fluid collections. Ventricular system: Within normal limits Cerebral parenchyma: No acute intraparenchymal hemorrhage or mass effect. The gatica-white junction is well differentiated. Cerebellum: Cerebellar tonsils extend 3 mm below the foramen magnum. Mass effect: No evidence of midline shift. Intracranial vasculature: unremarkable Soft tissues: Normal. Calvarium/osseous structures: No depressed skull fracture. Paranasal sinuses and mastoid air cells: Mild scattered paranasal sinus disease. Visualized orbits: Orbital contents are intact. IMPRESSION: 1. No acute intracranial process. 2. Cerebellar tonsillar ectopia.
[2023-07-09 18:26] VITALS: RESP 18
[2023-07-09] MEDS: KETOROLAC 15 MG/ML 1 ML VIAL IVP STA (19:08)
[2023-07-09] MEDS: ONDANSETRON 4 MG/2 ML VIAL IVP STA (19:15)
[2023-07-09 19:28] VITALS: BP 135/82; PULSE 82; TEMP 97.9
== END 2023-07-09 19:30 | disposition home or self-care (01) ==
LOC: EC 15:22
DX: R42 Dizziness and giddiness (principal); F17.200 Nicotine dependence, unspecified, uncomplicated
CPT/HCPCS: 36415; 93005; 80053; 85025; 81001; 81025; 70450; 99284; 96374; 96361; J1885

== ENCOUNTER → 2024-04-26 | Outpatient (CLI) | payer BC ==
--- NOTE | 2024-04-26 12:05 | CT ---
EXAMINATION TYPE: CT abdomen pelvis w con CT DLP: 790.6 mGycm, Automated exposure control for dose reduction was used. DATE OF EXAM: 04/26/2024 11:12 AM COMPARISON: Abdominal ultrasound 12/27/2019 CLINICAL INDICATION:Female, 34 years old with history of R10.84 abdominal pain; flank and lower abd p ain, bloating TECHNIQUE: Standard CT of the abdomen and pelvis following the administration of 100 cc of Isovue 3 00 IV contrast material and oral contrast. Coronal and sagittal reformats were performed. FINDINGS: LOWER CHEST: Posterior dependent subsegmental atelectasis is noted. ABDOMEN LIVER: Focal fatty infiltration adjacent to the falciform ligament in segment IVb GALLBLADDER AND BILE DUCTS: Unremarkable. PANCREAS: Unremarkable. SPLEEN: Unremarkable. ADRENAL GLANDS: Unremarkable. KIDNEYS AND URETERS: No evidence of hydronephrosis or renal calculus. The kidneys enhance symmetrical ly. Contrast is demonstrated within both collecting systems on the delayed phase. PELVIS BLADDER: Unremarkable REPRODUCTIVE: Unremarkable. ABDOMEN & PELVIS STOMACH AND BOWEL: Stomach and duodenum are unremarkable. Enteric contrast reaches the descending col on. No focal bowel wall thickening or surrounding inflammatory changes. Unremarkable contrast-filled appendix. No evidence of bowel obstruction. PERITONEUM: No evidence of pneumoperitoneum or free fluid. VASCULATURE: No evidence of aortic aneurysm. MUSCULOSKELETAL: No acute osseous abnormalities LYMPH NODES: No evidence for lymphadenopathy. SOFT TISSUE/ABDOMINAL WALL: Tiny fat filled umbilical hernia. IMPRESSION: No acute abdominal/pelvic process. No CT evidence to explain patient's acute symptomatology. [facility], , 04/26/2024 12:03 PM
== END | disposition home or self-care (01) ==
LOC: RADCTMAIN 08:58
PROVIDERS: ATTEND Pediatrics
DX: K42.9 Umbilical hernia without obstruction or gangrene (principal); R11.0 Nausea; R14.0 Abdominal distension (gaseous)
CPT/HCPCS: 74177; Q9967